=== PATIENT | female | born 1980 | race Caucasian/White ===

== ENCOUNTER 2019-10-18 08:13 | Outpatient (CLI) | payer OTHER, SELFPAY ==
--- NOTE | ~2019-10-18 | US_ITS ---
EXAMINATION: US art doppler w press UE BI EXAM DATE: 10/18/2019 09:36 INDICATION: Right arm numbness, driving makes it worse. TECHNIQUE: Segmental pressures and plethysmographic and Doppler waveforms of the upper extremity kareen ivory were obtained. There is no prior study for comparison. FINDINGS: Right and left brachial artery pressures of 113 mm Hg and 119 mm Hg, respectively, are concordant (no rmal difference <= 30 mmHg). RIGHT: Right ulnar/brachial arterial Doppler ratio 0.82 (93 mmHg). Right radial/brachial arterial Doppler ratio 0.92 (104 mmHg). Right index finger 100 mmHg. The waveforms are triphasic proximally, biphasic distally. LEFT: Left ulnar/brachial arterial Doppler ratio 0.89 (106 mmHg). Left radial/brachial arterial ratio 0.83 (99 mmHg). Left index finger 92 mmHg. The waveforms are triphasic proximally, biphasic distally. IMPRESSION: Essentially normal exam. Reviewed, dictated and finalized at location A. TILE DECORATOR IMPRESSION: Essentially normal exam.
== END 2019-10-18 08:14 | disposition home or self-care (01) ==
LOC: ANHIMG 08:22
PROVIDERS: PCP Registered Nurse; Visit Provider Registered Nurse
DX: L81.9 Disorder of pigmentation, unspecified (principal); R20.2 Paresthesia of skin
CPT/HCPCS: 93923

== ENCOUNTER 2020-08-15 06:51 | Outpatient (NON) | payer SELFPAY ==
[2020-08-15 23:31] LABS: SARS-CoV-2 RNA PCR Positive
== END 2020-08-15 06:52 ==
PROVIDERS: PCP Registered Nurse; Visit Provider Registered Nurse
DX: U07.1 COVID-19 (principal)
CPT/HCPCS: 87635; C9803; U0003